=== PATIENT | female | born 1995 | race American Indian/Alaskan Native ===

== ENCOUNTER 2017-11-14 06:32 | Emergency (ER) | payer MEDICAID ==
[2017-11-14 06:37] VITALS: BP 136/84
[2017-11-14] MEDS ORDERED: TYLENOL ONE (06:58)
--- NOTE | 2017-11-14 07:56 | Emergency Department Report ---
HPI - General Chief Complaint: Dental/Oral Time Seen by Provider: 11/14/17 07:18 - HPI HPI: This is a patient and here for toothache. She reports that she's been having toothache 4 days. She states radiated into her left ear . She denies any fever or chills. She said her tooth is broken to the left lower back tooth. Denies having a dentist. Denies any sore throat or drooling. Denies any cough and nasal congestion. Pain is 10 out of 10 achy. She says she took Advil and didn't make it better. pain worst with eating ED Past Medical Hx - Past Medical History Previous Medical History?: No - Surgical History Past Surgical History?: No - Family History Family history: no significant - Social History Smoking Status: Never Smoker Substance Use Type: None Other Social History: single. works - Medications Home Medications: Home Medications Medication Instructions Recorded Confirmed Last Taken Type Acetaminophen/Codeine [Tylenol 1 tab PO Q6H PRN #12 tab 11/14/17 Unknown Rx /Codeine # 3 tab] Clindamycin [Clindamycin CAP] 300 mg PO Q8H 30 Days #10 cap 11/14/17 Unknown Rx Ibuprofen [Motrin] 600 mg PO Q8H PRN #15 tablet 11/14/17 Unknown Rx ED Review of Systems ROS: Stated complaint: TOOTH ACHE Other details as noted in HPI Comment: All other systems reviewed and negative Constitutional: denies: chills, fever Eyes: denies: eye pain, eye discharge, vision change ENT: denies: ear pain, throat pain, hearing loss, epistaxis, congestion Respiratory: denies: cough, shortness of breath, wheezing Cardiovascular: denies: chest pain, palpitations Gastrointestinal: denies: abdominal pain, nausea, diarrhea Musculoskeletal: denies: back pain, joint swelling, arthralgia Skin: denies: rash, lesions Neurological: denies: headache, weakness, paresthesias Physical Exam - Physical Exam Vital Signs: Vital Signs 11/14/17 11/14/17 06:32 06:53 Temperature 99.5 F 99.5 F Pulse Rate 89 86 Respiratory 18 18 Rate Blood Pressure 136/84 136/84 O2 Sat by Pulse 99 99 Oximetry General: This is a 22-year-old female well-nourished well-developed in no acute distress. Physical Exam: Head: Normocephalic, atraumatic, no abrasion, no bruising and no contusion. Eyes: Biateral pupils equal and reactive to light, bilateral EOM intact.. Bilateral conjunctival and sclera without injection, normal accommodation. No nystagmus Mouth: Mucosa dry, no pharyngeal exudate or erythema. No peritonsillar abscesses. Uvula is midline and oral airways patent.. Patient with fractured left lower third molar without any pulp exposure. No signs of cellulitis or abscess. No gingivitis and Ears: Bilateral TMs pearly oliveira Bilateral EAC without any redness swelling or drainage. No mastoid bone tenderness Nose: Lateral nasal mucosa normal ,Maxillary and frontal sinuses non-tender to palpate. Neck: Supple, No Cervical adenopathy, full range of motion and no C-spine tenderness. No swelling or tracheal deviation normal reflexes Cardiovascular: S1, S2. Regular rate and rhythm. No murmur. Capillary refill is less then 3 seconds. Lungs: Clear to auscultate bilaterally. No rhonchi, wheezes or rales. No chest wall tenderness. No chest contusion. No bruising to chest. MSK: Strength 5/5 in all extremities. No joint deformity or crepitus. Normal inspection. Full range of motion to all extremities. No laceration, abrasion or ecchymotic area noted. Abdomen: Non-tender to palpate in all quadrants, no guarding or rebound tenderness, positive bowel sounds in all quadrants. No CVA tenderness. No hernia, bruit or mass. No rigidity or distention. Extremities: No clubbing, cyanosis or edema. +2 pulses. No neurovascular compromise Skin: Clean, dry and intact. No rash or lesions. Neurological: GCS at 15, Pt is alert and oriented 3 speech is clear . Bilateral hand fruit buyer strong and equal. Normal gait. Negative Romberg and no pronator drift. Normal Reflexes. No motor or sensory deficit Back: No vertebral tenderness, no paraspinal tenderness. Ambulates without any difficulties. Psych: Normal mood and behavior ED Course Vital Signs 11/14/17 11/14/17 06:32 06:53 Temperature 99.5 F 99.5 F Pulse Rate 89 86 Respiratory 18 18 Rate Blood Pressure 136/84 136/84 O2 Sat by Pulse 99 99 Oximetry - Reevaluation(s) Reevaluation #1: 11/14/17 09:30 Patient given hydrocodone 7.5/25 mg. Emergency room for toothache which helped her toothache. Critical care attestation.: If time is entered above; I have spent that time in minutes in the direct care of this critically ill patient, excluding procedure time. ED Disposition Clinical Impression: Tooth ache, Dental caries Tooth fracture Qualifiers: Encounter type: initial encounter Fracture type: closed Qualified Code(s): S02.5XXA - Fracture of tooth (traumatic), initial encounter for closed fracture Disposition: DC- TO HOME OR SELFCARE Is pt being admited?: No Does the pt Need Aspirin: No Condition: Stable Instructions: Dental Caries (ED), Toothache (ED) Additional Instructions: follow-up at [facility] call today to schedule an appointment Take antibiotics as prescribed. Take Motrin and Tylenol [address] for pain but please not drive or operate heavy machinery while taking this medication Prescriptions: Acetaminophen/Codeine [Tylenol /Codeine # 3 tab] 1 tab PO Q6H PRN #12 tab PRN Reason: toothache Clindamycin [Clindamycin CAP] 300 mg PO Q8H 30 Days #10 cap Ibuprofen [Motrin] 600 mg PO Q8H PRN #15 tablet PRN Reason: Pain Referrals: IVON CUEVAS [Other] - 11/16/17 [facility] [Outside] - 11/16/17 Forms: Work/School Release Form(ED)
== END 2017-11-14 09:45 | disposition home or self-care (01) ==
LOC: ED 06:32
DX: K08.89 Other specified disorders of teeth and supporting structures (principal); K02.9 Dental caries, unspecified
CPT/HCPCS: 99282